=== PATIENT | female | born 1975 | race Caucasian/White ===

== ENCOUNTER 2018-01-20 11:13 | Emergency (ER) | payer OTHER, SELFPAY ==
[2018-01-20 11:14] VITALS: BP 125/83; PULSE 77; RESP 16; TEMP 36.6; O2SAT 98; BMI 32.6
--- NOTE | 2018-01-20 12:02 | CT_ITS ---
STUDY: CT ABDOMEN AND PELVIS WITH CONTRAST REASON FOR EXAM: Female, 42 years old. Blood in the stool. RADIATION DOSAGE (If Supplied By Facility): CTDIvol = ( 15.53 ) mGy, DLP = ( 1069.17 ) mGycm TECHNIQUE: Transaxial images were obtained from the dome of the diaphragm to the symphysis pubis with oral contrast. 100 ml of Isovue 300 contrast was administered. Sagittal and coronal images were reconstructed. Individualized dose optimization techniques were used for this CT. COMPARISON: None. FINDINGS: The visualized lung bases are unremarkable. The visualized portions of the heart are within normal limits. Normal liver. Normal gallbladder and extrahepatic biliary system. Normal spleen. Normal pancreas. Normal bilateral adrenal glands. Normal right kidney. Normal left kidney. There is a small hiatal hernia. Normal small intestine. Diffuse circumferential wall thickening of the entire colon with diffuse colitis. Increased markings in the surrounding peritoneal fat. The appendix is visualized and appears normal. Small lymph nodes are seen in the peritoneal fat in the right lower quadrant suggestive of a mesenteric adenitis. Normal abdominal aorta. Normal inferior vena cava. There is borderline retroperitoneal lymphadenopathy with enlarged nodes no greater than 10mm in the short axis diameter. Normal urinary bladder. Small amount of fluid is seen in the pelvis. Normal abdominal wall. Normal osseous structures. CT/Abdomen/Pelvis WITH Contrast IMPRESSION: Diffuse colitis. Small amount of fluid is seen in the pelvis. Electronically Signed: Neil Monae MD at 14:11 EDT Tel [phone], Service support ,
[2018-01-20 12:30] LABS: ALB/GLOB Ratio 0.7 RATIO (0.9-2.4); AST(SGOT) 14 U/L (15-37); Alanine Aminotransfer ALT/SGPT 33 U/L (13-56); Albumin, Serum 3.1 g/dL (3.2-5.0); Alkaline Phosphatase 95 U/L (45-117); Anion Gap 7 (5-15); BUN 12 mg/dL (7-18); BUN/Creat Ratio 12.7 RATIO (10-20); Calcium,Total 8.9 mg/dL (8.5-10.1); Chloride 101 mmol/L (98-107); Creatinine, Serum 0.94 mg/dL (0.55-1.02); EST Glomerular Filtration Rate 69 mL/min (>60); Est Glom Filt Rate - Afr Amer 84 mL/min (>60); Estimated Creatinine Clearance 76.59 ml/min; Globulin 4.2 g/dL (2.2-4.2); Glucose 92 mg/dL (74-106); Protein, Total 7.3 g/dL (6.4-8.2); Sodium Level 137 mmol/L (136-145)
[2018-01-20 12:38] LABS: Absolute Lymphocyte Count 1.91 X10^3/ul (0.83-4.51); Absolute Neutrophil Count 8.7 X10^3/uL (2.0-7.7); Basophil# 0.02 X10^3/uL; Basophil% 0.2 % (0-1); Eosinophil# 0.27 X10^3/uL; Eosinophils% 2.4 % (0-5); Hematocrit 40.1 % (37-47); Hemoglobin 13.8 g/dl (12.0-15.0); Lymphocyte # 1.91 X10^3/ul (4.0); Lymphocyte % 16.7 % (19-41); Mean Corp Hgb Conc 34.4 g/gl (32-36); Mean Corpuscular Hgb 30.9 pg (27.0-32.0); Mean Corpuscular Volume 89.7 fL (81-99); Monocyte# 0.55 X10^3/uL; Monocyte% 4.8 % (0-10); Neutrophil # 8.67 X10^3/uL (2.7-7.7); Neutrophil % 75.7 % (47-70); Platelet Count 268 K/mm3 (150-450); RBC Distribution Width CV 14.1 % (11.6-14.6); RBC Distribution Width SD 45.9 fl (35.1-43.9); Red Blood Count 4.47 M/mm3 (4.2-5.4); White Blood Count 11.4 K/mm3 (4.4-11.0)
[2018-01-20 12:39] LABS: POSITIVE COUNT NO; POSITIVE DIFFERENTIAL NO; POSITIVE MORPHOLOGY NO
[2018-01-20 13:14] LABS: Bacteria 0 SEEN /hpf (None Seen); Mucous, Urine 0 SEEN /hpf (<or=2+); Red Blood Cells-Urine 0 SEEN /hpf (0-5); White Blood Cells 0 SEEN /hpf (0-5)
[2018-01-20 13:16] LABS: Color, Urine Yellow (Yellow); Glucose, Dipstick Normal (Normal); Ketone-Dipstick Negative (Negative); Leukocyte Esterase-Dipstick Negative /ul (Negative); Nitrite-Dipstick Negative (Negative); Occult Blood-Urine Negative /ul (Negative); Protein-Dipstick Negative (Negative); Urine Bilirubin Dipstick Negative (Negative); Urine Clarity Sl. Cloudy (Clear); Urine Urobilinogen Normal (Normal)
[2018-01-20 13:21] VITALS: BP 119/73; BP 125/91; BP 137/91; PULSE 77; PULSE 82; PULSE 85
[2018-01-20 13:25] VITALS: PULSE 79; RESP 14; O2SAT 98
[2018-01-20 13:26] LABS: Squamous Epithelial Cells - UA 0-5 SEEN /hpf (5-10)
--- NOTE | 2018-01-20 15:17 | ED.VISSUMM ---
- ER Visit Summary Date of Service: 01/20/18 Chief Complaint: Diarrhea History of Present Illness: The patient is a 42 F presenting with diarrhea since Friday. She states she has had approximately 6 episodes of diarrhea per day for the last several days. 2 days ago she started noticing small amounts of blood in her stool. She works in a [employer] but does not have any known exposure to C. difficile. No recent antibiotics. She has mild diffuse abdominal cramping. She has nausea with no vomiting. No urinary complaints. No fever. Denies lightheadedness or syncope. Physical Examination: Vitals are stable. Patient is afebrile. Alert no acute distress. HEENT exam is unremarkable. Neck is supple. Lungs are clear and equal bilaterally. Heart is regular rate and rhythm. Abdomen is soft right lower quadrant tenderness with no rebound or guarding. Extremities are unremarkable. Skin is warm and dry. No focal neurologic deficit. Remainder of exam is unremarkable. Emergency Department Course and Treatment: Patient is given IV fluids, Zofran. CBC shows a white count of 11.4, hemoglobin 13.8. Chemistries unremarkable. Urinalysis unremarkable. Orthostatics negative. CT abdomen pelvis shows diffuse colitis. Stool is guaiac negative. She was unable to provide a stool sample in the ED. She remains hemodynamically stable in the emergency department. Repeat abdominal exam is soft and nontender with no guarding or rebound. She is given Cipro and Flagyl. She has an appointment with her primary care physician tomorrow. She is advised to keep this appointment. Advised return to ED for any worsening complaints. Disposition: Discharge home Impression: Colitis This note was generated with [employer] dictation software. It may contain incorrect words, spelling, and punctuation that were not noted in review of the chart prior to signing ED Disposition - Plan for ED Patient: Disposition: Home or Assisted Living Chief Complaint: GI Bleed Instructions: Treating Diarrhea Prescriptions: Metronidazole [Flagyl] 500 mg PO Q8H #21 tablet Ciprofloxacin [Cipro] 500 mg PO BID #14 tablet Referrals: Matt Young DO [Primary Care Provider] -
--- NOTE | 2018-01-20 15:21 | ED.DCSUM_ITS ---
- ER Visit Summary Date of Service: 01/20/18 Chief Complaint: Diarrhea History of Present Illness: The patient is a 42 F presenting with diarrhea since Friday. She states she has had approximately 6 episodes of diarrhea per day for the last several days. 2 days ago she started noticing small amounts of blood in her stool. 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 No recent antibiotics. She has mild diffuse abdominal cramping. She has nausea with no vomiting. No urinary complaints. No fever. Denies lightheadedness or syncope. Physical Examination: Vitals are stable. Patient is afebrile. Alert no acute distress. HEENT exam is unremarkable. Neck is supple. Lungs are clear and equal bilaterally. Heart is regular rate and rhythm. Abdomen is soft right lower quadrant tenderness with no rebound or guarding. Extremities are unremarkable. Skin is warm and dry. No focal neurologic deficit. Remainder of exam is unremarkable. Emergency Department Course and Treatment: Patient is given IV fluids, Zofran. CBC shows a white count of 11.4, hemoglobin 13.8. Chemistries unremarkable. Urinalysis unremarkable. Orthostatics negative. CT abdomen pelvis shows diffuse colitis. Stool is guaiac negative. She was unable to provide a stool sample in the ED. She remains hemodynamically stable in the emergency department. Repeat abdominal exam is soft and nontender with no guarding or rebound. She is given Cipro and Flagyl. She has an appointment with her primary care physician tomorrow. She is advised to keep this appointment. Advised return to ED for any worsening complaints. Disposition: Discharge home Impression: Colitis This note was generated with [employer] dictation software. It may contain incorrect words, spelling, and punctuation that were not noted in review of the chart prior to signing ED Disposition - Plan for ED Patient: Disposition: Home or Assisted Living Chief Complaint: GI Bleed Instructions: Treating Diarrhea Prescriptions: Metronidazole [Flagyl] 500 mg PO Q8H #21 tablet Ciprofloxacin [Cipro] 500 mg PO BID #14 tablet Referrals: Matt Young DO [Primary Care Provider] -
[2018-01-20] MEDS: Ciprofloxacin 500 MG Tablet PO (15:38)
[2018-01-20] MEDS: metroNIDAZOLE 500 MG Tablet PO (15:44)
[2018-01-20 15:46] VITALS: BP 127/76; PULSE 76; RESP 16; O2SAT 98
[2018-01-20 15:47] VITALS: BP 127/76; PULSE 76; RESP 16; O2SAT 98
== END 2018-01-20 15:48 | disposition home or self-care (01) ==
LOC: ED 12:31
PROVIDERS: Emergency Provider Emergency Medicine; Family Provider Preventive Medicine Occupational Medicine; PCP Preventive Medicine Occupational Medicine
DX: K52.9 Noninfective gastroenteritis and colitis, unspecified (principal); Z79.899 Other long term (current) drug therapy; Z72.0 Tobacco use
CPT/HCPCS: 74177; 80053; 81001; 82274; 85025; 96360; 99284; J7030; J7040; Q9967; A4216; J2405